=== PATIENT | male | born 2005 | race Caucasian/White ===

== ENCOUNTER 2025-01-22 13:30 | Emergency (ER) | payer MEDICAID, OTHER ==
[~2025-01-22] VITALS: Ht 190.5 cm; Wt 87.4 kg
[~2025-01-22 13:30] MED LIST: AMOX50SU; BACL PO; DIPH-115 PO; ONDA4SOL7 PO
[2025-01-22 13:37] VITALS: BP 139/78; PULSE 64; RESP 18; TEMP 98.3; O2SAT 99
--- NOTE | 2025-01-22 13:57 | RADIOLOGY REPORT ---
EXAM: DI FOOT, COMPLETE (3VW MIN) CLINICAL INDICATION: FOOT PAIN TECHNIQUE: DI FOOT, COMPLETE (3VW MIN) Comparison: None FINDINGS/IMPRESSION: There is no evidence of acute fracture or dislocation. The visualized joint space is well maintained. The alignment is anatomical. There is no radiopaque foreign body.
[2025-01-22] MEDS: ibuprofen tablet 400 MG TABLET PO ONE (14:08)
--- NOTE | 2025-01-22 14:16 | Physician Documentation ---
History of Present Illness ~ Chief Complaint: Foot pain Stated Complaint: STEPPED ON A NAIL Time Seen by MD: 13:39 Primary Medical Doctor: [facility] Source: patient Mode of Arrival: POV Exam Limitations: no limitations HPI 19-year-old male presents with puncture wound to right bottom of foot 2 days ago. He states that he was at work and accidentally stepped on a he hook which penetrated his foot but did not go all the way through. He has been taking Tylenol and ibuprofen at home last dose yesterday. Tetanus witin 5 years: Yes Medication Reconciliation Allergies: Coded Allergies: Penicillins (Verified Allergy, rash, 06/06/13) Scheduled Sulfamethoxazole/Trimethoprim (Septra Suspension), 3.5 TSP PO BID Sulfamethoxazole/Trimethoprim (Septra Suspension), 4 TSP PO BID Scheduled PRN Diphenhydramine Hcl (Benadryl Liquid), 5 ML PO every 6 hour PRN Ondansetron Hcl (Zofran Oral Solution), 4 MG PO Q8H PRN Miscellaneous Medications Amox Tr/Potassium Clavulanate (Amox Tr-K Clv 400-57/5 Susp), (Reported) Past Medical History Past Medical History: No Pertinent History Past Surgical History: appendectomy Alcohol Use: None Drug Use: none Lives with: Family Lives In: Home Occupation: student, child Review of Systems All Other Systems at this time: Reviewed and Negative Physical Exam Vital Signs: RN Vital Signs have been reviewed: Yes, Temperature: 98.3, Source: Temporal, Heart Rate: 64, Respiratory Rate: 18, BP: 139/78, Pulse Oximetry: 99, Weight: 87.400 Oxygen Flow Rate: 0 Pulse Oximetry Reflects: adequate oxygenation Physical Exam General: Alert, no distress. HEENT: No injection, moist mucous membranes. Neck: Full range of motion. Respiratory: No respiratory distress, equal chest rise and fall. Chest: No accessory muscle use. Cardiovascular: Regular rate and rhythm. Gastrointestinal: Nondistended. Extremities: Normal range of motion right foot, no deformity. No edema, drainage or erythema around puncture site. Small healing puncture to bottom of right foot. Neurologic: Oriented x4. Psychiatric: Normal mood and affect. Skin: Normal color, warm and dry. Progress Results/Orders Reviewed/noted all lab results: Yes Results/Orders Completed Orders - JAY,ROSY D [employer] Acetaminophen 325mg Tablet (Tylenol Tabl (01/22/25 13:55) Ibuprofen Tablet (Motrin Tablet) (01/22/25 13:55) Tetanus/Pertuss/Diph Acell/Pf (Boostrix (01/22/25 14:10) Medications Received in ER Medications (Trade) Dose Ordered Sig/Adam Route PRN Reason Start Time Stop Time Status Last Admin Dose Admin (Tylenol tablet) 650 mg ONCE ONCE PO 01/22/25 13:55 01/22/25 13:56 DC 01/22/25 14:08 650 MG (Motrin tablet) 800 mg ONCE ONCE PO 01/22/25 13:55 01/22/25 13:56 DC 01/22/25 14:08 800 MG Vital Signs 01/22/25 13:37 Temp 98.3 Pulse 64 Resp 18 B/P (MAP) 139/78 Pulse Ox 99 O2 Flow Rate 0 Medical Decision Making Additional info obtained from: old records, family Findings He accidentally stepped on a hay hook which penetrated his foot but did not go all the way through 2 days ago. He is afebrile and vital signs are stable. I did a X ray just to assess the bone and structure there is no acute fracture or soft tissue swelling noted. Physical exam is unremarkable shows small puncture to bottom of right foot. There was no signs or symptoms of any infection so no antibiotics are indicated at this time. He did not know when his last tetanus shot was so we updated his vaccine today he had Tylenol and ibuprofen for the pain last dose was yesterday so I gave him a dose while here in the department. I discussed monitoring for signs or symptoms of infection as he may need an antibiotic and he verbalizes understanding. He should follow up with the primary care and return back here for any new or worsening symptoms. Foot Diff Dx:Considerations: Include: Cellulitis, Gout, Hematoma, Neurovascular injury, Open fracture Departure Disposition: 01 HOME / SELF CARE / HOMELESS Impression: Primary Impression: Foot pain Discharge Instructions: RICE Therapy for Routine Care of Injuries, [id number] Additional Instructions: We updated your tetanus vaccine today. Follow up with her primary care provider. Please keep wound clean and dry. Please return if he starts showing any signs or symptoms of infection at that site such as redness, pus-like discharge, fevers or any other concerning symptoms. Your x-ray today does not show any fracture of the foot. Return back here for any new or worsening symptoms. Referrals: NO PRIMARY CARE PROVIDER (PCP) Education Educated: Patient Educated regarding: diagnosis, treatment, prognosis, need for follow up Additional Comment Medical Screen Exam This patient recieved a medical screening examination. After reviewing the individual's medical complaints with presenting symptoms and performing an appropriate physical examination, it was determined that no immediate life- threatening emergency medical condition is present. This individual is also not a women having contractions. Signature Scribe Signature: . Attestation: Scribed for Rosy Quick [employer] by Rosy Land NP . 01/22/25 14:21 Parts of this note were created using [employer] voice recognition software program. While efforts were made to correct any mistakes made by this voice recognition software program, nonsensical phrases may remain in this note. In addition, there may be errors and syntax, grammar, content and spelling. ROSY QUICK [employer] Jan 22, 2025 14:16
[2025-01-22] MEDS: TETanus/Pertussis (Acell)/Diphther VAC/PF (Tdap-Adult) 0.5ml syringe IMVAC ONE (14:18)
== END 2025-01-22 14:39 | disposition home or self-care (01) ==
LOC: ER 13:31
DX: M79.671 Pain in right foot (principal); Z88.0 Allergy status to penicillin; Z90.49 Acquired absence of other specified parts of digestive tract
CPT/HCPCS: 73630; 90471; 90715; 99283

== ENCOUNTER 2025-01-27 14:04 | Emergency (ER) | payer MEDICAID, OTHER ==
[~2025-01-27] VITALS: Ht 190.5 cm; Wt 91.5 kg
[2025-01-27 14:55] LABS: MEAN PLATELET VOLUME 7.2 FL (7.4-10.4); RED CELL DISTRIBUTION WIDTH 14.4 % (11.5-14.5)
[2025-01-27 15:09] LABS: CREATININE 0.84 MG/DL (0.60-1.10); TOTAL CARBON DIOXIDE 26.0 MMOL/L (24-32); eCRCL 169 ML/MIN; eGFR > 90 ML/MIN
--- NOTE | 2025-01-27 18:56 | Physician Documentation ---
History of Present Illness ~ Chief Complaint: Foot pain Stated Complaint: FOOT PAIN Time Seen by MD: 18:54 OK to notify your PCP?: Yes Primary Medical Doctor: [facility] Source: patient, RN/, RN notes reviewed, old records Mode of Arrival: POV Exam Limitations: no limitations HPI BED 10 This patient is a 19 y/o male who presents to ED with chief complaint of foot pain. Patient was last seen here on 12/23/2024, 5 days ago, for a foot wound after he stepped on a hook. He was given a Tetanus shot at the time, and had imaging of his foot which was negative for any foreign bodies or other abnormalities. He was not prescribed antibiotics at that time. Patient returns today stating he is still having pain in his right foot, which he describes as a constant, sharp pain which radiates from the bottom of his foot up to his ankle. He complains that this pain is so severe that it is preventing him from sleeping at night. He was asked, but denies taking anything over the counter at home for his pain, such as Tylenol or Motrin. Patient denies any other associated symptoms at this time. Patient denies any other alleviating or exacerbating factors. Tetanus witin 5 years: Yes Medication Reconciliation Allergies: Coded Allergies: Penicillins (Verified Allergy, Unknown, rash, 01/22/25) Discontinued Medications Acetaminophen (Tylenol), 1-2 TAB PO DAILY PRN for pain or fever, (Reported) Discontinued Reason: patient no longer taking Amox Tr/Potassium Clavulanate (Amox Tr-K Clv 400-57/5 Susp), (Reported) Discontinued Reason: patient no longer taking Diphenhydramine Hcl (Benadryl Liquid), 5 ML PO every 6 hour PRN Discontinued Reason: patient no longer taking Melatonin (Melatonin), 3 TAB PO HS, (Reported) Discontinued Reason: patient no longer taking Ondansetron Hcl (Zofran Oral Solution), 4 MG PO Q8H PRN Discontinued Reason: patient no longer taking Sulfamethoxazole/Trimethoprim (Septra Suspension), 3.5 TSP PO BID Discontinued Reason: patient no longer taking Sulfamethoxazole/Trimethoprim (Septra Suspension), 4 TSP PO BID Discontinued Reason: patient no longer taking Tramadol HCl (Tramadol HCl), 1 TAB PO Q12H PRN PRN for pain, (Reported) Discontinued Reason: patient no longer taking Past Medical History Past Medical History: No Pertinent History Past Surgical History: appendectomy Smoking Status: Current every day smoker Alcohol Use: None Drug Use: none Lives with: Family Lives In: Home Occupation: student, child Review of Systems All Other Systems at this time: Reviewed and Negative Physical Exam Vital Signs: RN Vital Signs have been reviewed: Yes, Temperature: 98.7, Source: Temporal, Heart Rate: 70, Respiratory Rate: 16, BP: 118/68, Pulse Oximetry: 100, Weight: 91.450 Oxygen Flow Rate: 0 Physical Exam General: The patient is well developed, well nourished, nontoxic appearing and is in no acute distress. Skin: RLE: To the plantar foot there is a small, healed over skin sunitha between the fourth and fifth digits, just proximal of the MP joint. There are no signs of infection or redness. Rest of skin is otherwise pink, warm and dry with no rashes. HEENT: Head was normocephalic and atraumatic. Eyes - pupils equal, round, reactive to light and accommodation. Extraocular movements were intact. Conjunctivae were nonicteric. The mouth and oropharynx were clear with moist mucous membranes. There were no pharyngeal exudates or erythema. Neck: Supple and nontender. There was no jugular venous distention, lymphadenopathy, thyromegaly or masses. Chest: Clear to auscultation bilaterally without wheezes, rales or rhonchi. No accessory muscle use. No dullness to percussion. Heart: Rate regular and rhythmic. S1, S2. No murmurs. Palpation of the chest wall was normal. No rubs or thrills. Abdomen: Soft, nontender and nondistended. Positive bowel sounds. No guarding or rebound. No hepatosplenomegaly or palpable masses. Extremities: (SEE SKIN) Otherwise RLE is nontender. No cyanosis, clubbing or edema. The patient moves all extremities. Pulses were equal and symmetric. Neurologic: Motor and sensation grossly intact. A & O x4. Psychologic: The patient was oriented to person, place and time. Progress Results/Orders Reviewed/noted all lab results: Yes Results/Orders Orders - DARCI SANTIAGO MD, Complete (3vw Min) (01/27/25 19:08) Completed Orders - SANTIAGO,DARCI S MD Foot, Complete (3vw Min) (01/27/25 19:08) Naproxen Tablet (Naprosyn Tablet) (01/27/25 19:05) Medications Received in ER Medications (Trade) Dose Ordered Sig/Adam Route PRN Reason Start Time Stop Time Status Last Admin Dose Admin (Naprosyn tablet) 500 mg ONCE ONCE PO 01/27/25 19:05 01/27/25 19:06 DC 01/27/25 19:09 500 MG Vital Signs 01/27/25 01/27/25 01/27/25 01/27/25 14:22 16:59 18:34 18:38 Temp 98.7 Pulse 89 69 70 Resp 16 19 16 16 B/P (MAP) 128/66 126/70 (88) 118/68 (85) Pulse Ox 98 99 100 O2 Flow Rate 0 0 01/27/25 19:55 Temp 98.5 Pulse 70 Resp 16 B/P (MAP) 112/60 Pulse Ox 99 Laboratory Tests Test 01/27/25 14:45 White Blood Count 9.1 Red Blood Count 4.21 L Hemoglobin 12.6 L Hematocrit 37.4 L Mean Corpuscular Volume 88.9 Mean Corpuscular Hemoglobin 29.8 Mean Corpuscular Hemoglobin Concent 33.5 Red Cell Distribution Width 14.4 Platelet Count 262 Mean Platelet Volume 7.2 L Neutrophils (%) (Auto) 70.7 Lymphocytes (%) (Auto) 18.7 L Monocytes (%) (Auto) 6.9 Eosinophils (%) (Auto) 3.1 Basophils (%) (Auto) 0.6 Neutrophils # (Auto) 6.4 Lymphocytes # (Auto) 1.7 Monocytes # (Auto) 0.6 Eosinophils # (Auto) 0.3 Basophils # (Auto) 0.1 CBC Comment Sodium Level 141 Potassium Level 4.5 Chloride Level 106 Carbon Dioxide Level 26.0 Anion Gap 9 Blood Urea Nitrogen 8 Creatinine 0.84 Estimated GFR/1.73 m2 > 90 BUN/Creatinine Ratio 9.5 L Glucose Level 91 Calcium Level 9.0 Total Bilirubin 0.2 Aspartate Amino Transf (AST/SGOT) 25 Alanine Aminotransferase (ALT/SGPT) 45 Alkaline Phosphatase 73 Total Protein 7.2 Albumin 3.7 Globulin 3.5 Albumin/Globulin Ratio 1.1 Chemistry Comments Re-Evaluation Re-Evaluation : Re-Evaluation: Unchanged Progress Patient was given naproxen. X-ray did not show any signs of infection or foreign bodies. Patient was having multiple complaints regarding pain that has so severe it is having difficulty sleeping at night. Patient was given naproxen given supportive care measures and patient needs to follow up with his primary care physician unless if his foot dramatically changes for an since a severe infection or any other concerns but otherwise outpatient workup. Patient was told to take [id number] naproxen as needed EKG/XRAY/CT/US/VASC/MRI Bone/Soft Tissue X-Ray (Ext.) : Interpreted By: both Additional Comment Patient: FRIEDA HOPPER JR Medical Record: [id number] [facility] 2005, Age: 19 Sex: Male Location: ER Patient Status: [facility] ER Service Date/Time: 01/27/251907 Ordering Physician: DARCI SANTIAGO MD Exam: FOOT, COMPLETE (3VW MIN) EXAM: DI FOOT, COMPLETE (3VW MIN) CLINICAL HISTORY: RIGHT FOOT PAIN COMPARISON: DI FOOT, COMPLETE (3VW MIN) on DOS: 01/22/25 TECHNIQUE: DI FOOT, COMPLETE (3VW MIN) Findings/Impression: 3 views of the right foot. There is no evidence of an acute fracture, dislocation, blastic, or lytic lesions. No radiopaque foreign bodies. No superficial soft tissue abnormalities. Electronically Signed by:MARCELLA VALDES DO Date & Time: 01/27/251918 Dictated by: MARCELLA VALDES DO Dictation date and time: 01/27/251903 Primary Care Provider: NO PRIMARY CARE PROVIDER cc: DARCI SANTIAGO MD ~ IMAGES REVIEWED BY EDMD DR. SANTIAGO WHO AGREES WITH ABOVE FINDINGS Medical Decision Making Additional info obtained from: old records Foot Diff Dx:Considerations: Include: Abrasion, Arthritis, Cellulitis, Contusion, Fracture-metatarsal, Fracture-phalynx, Fracture-tarsal, Hematoma, Neurovascular injury, Sprain, Other Departure Time of Disposition: 19:48 Disposition: 01 HOME / SELF CARE / HOMELESS Impression: Primary Impression: Foot pain Qualified Codes: M79.671 - Pain in right foot Additional Impression: General medical exam Condition: Stable Discharge Instructions: Foot Pain Additional Instructions: Your imaging and labs were negative for any acute abnormalities today. I recommend over the counter Tylenol or Ibuprofen for pain which may help you sleep tonight. Follow up with your primary care doctor for further evaluation. Referrals: NO PRIMARY CARE PROVIDER (PCP) Education Educated: Patient Educated regarding: diagnosis, need for follow up, other Signature Scribe Signature: Scribed for Darci Santiago MD. 01/27/25 19:23 Attestation: The note accurately reflects work and decisions made by me.Darci Santiago MD 01/27/25 18:56 DARCI SANTIAGO MD Jan 27, 2025 18:56
--- NOTE | 2025-01-27 19:21 | RADIOLOGY REPORT ---
EXAM: DI FOOT, COMPLETE (3VW MIN) CLINICAL HISTORY: RIGHT FOOT PAIN COMPARISON: DI FOOT, COMPLETE (3VW MIN) on DOS: 01/22/25 TECHNIQUE: DI FOOT, COMPLETE (3VW MIN) Findings/Impression: 3 views of the right foot. There is no evidence of an acute fracture, dislocation, blastic, or lytic lesions. No radiopaque foreign bodies. No superficial soft tissue abnormalities.
[2025-01-27] MEDS ORDERED: MELA5TAB12 PO (19:39)
[2025-01-27] MEDS ORDERED: ACET-890 PO (19:39)
[2025-01-27] MEDS ORDERED: TRAM50TA2 PO (19:39)
[2025-01-27 19:55] VITALS: BP 112/60; PULSE 70; RESP 16; TEMP 98.5; O2SAT 99
== END 2025-01-27 19:58 | disposition home or self-care (01) ==
LOC: ER 14:05
DX: M79.671 Pain in right foot (principal); F17.200 Nicotine dependence, unspecified, uncomplicated; Z88.0 Allergy status to penicillin; Z90.49 Acquired absence of other specified parts of digestive tract
CPT/HCPCS: 36415; 73630; 80053; 85025; 99284